=== PATIENT | female | born 1995 | race Caucasian/White ===

== ENCOUNTER 2021-02-21 11:41 | Emergency (ER) | payer OTHER ==
[~2021-02-21] VITALS: Ht 172.7 cm; Wt 77.1 kg
[2021-02-21] MEDS ORDERED: SULTRIDS PO (13:25)
== END 2021-02-21 13:32 | disposition home or self-care (01) ==
LOC: ER 11:41
DX: L02.612 Cutaneous abscess of left foot (principal); B20 Human immunodeficiency virus [HIV] disease
CPT/HCPCS: 99283; A9270